=== PATIENT | male | born 1965 | race Hispanic/Latino ===

== ENCOUNTER 2019-01-21 13:58 | Observation (INO) | payer SELFPAY ==
[~2019-01-21] VITALS: Ht 172.7 cm; Wt 74.4 kg
[2019-01-21] MEDS ORDERED: SODIUM CHLORIDE 0.9% 1000ML 1,000 ML IV STA (14:19)
[2019-01-21] MEDS ORDERED: DEXTROSE 50% SYRINGE 50 ML IV PRN (14:30)
[2019-01-21] MEDS ORDERED: METOPROLOL TARTRATE 50 MG TAB PO NR (14:30)
[2019-01-21] MEDS ORDERED: SODIUM CHLORIDE FLUSH 10 ML SYR INJ PRN (14:30)
[2019-01-21] MEDS ORDERED: FAMOTIDINE 20 MG/2 ML VIAL IV NR (14:30)
[2019-01-21] MEDS ORDERED: NITROGLYCERIN 0.4 MG SUBL SL PRN (14:30)
[2019-01-21 14:36] LABS: BILIRUBIN,URINE NEGATIVE (NEGATIVE); CLARITY,URINE CLEAR (CLEAR); COLOR,URINE YELLOW (YELLOW); KETONES,URINE NEGATIVE (NEGATIVE); LEUKOCYTE ESTERASE ,URINE NEGATIVE (NEGATIVE); NITRITE,URINE NEGATIVE (NEGATIVE); PROTEIN,URINE DIPSTICK NEGATIVE (NEGATIVE); URINE UROBILINOGEN 0.2 mg/dL (0.2 - 1)
[2019-01-21 14:37] LABS: BASOPHILS % 0.3 % (0.0-1.0); EOSINOPHILS # (AUTO) 0.2 (0.0-0.4); EOSINOPHILS % 2.7 % (0.0-6.0); HEMATOCRIT 45.9 % (38.2-49.6); HEMOGLOBIN 15.6 g/dL (14.0-18.0); LYMPHOCYTES # (AUTO) 2.6 (1.0-3.2); LYMPHOCYTES % 29.7 % (18.0-39.1); MEAN CORPUSCULAR VOLUME 85.3 fL (81-99); MONOCYTES # (AUTO) 0.9 (0.2-0.8); MONOCYTES % 10.5 % (4.4-11.3); NEUTROPHILS # (AUTO) 4.9 (2.1-6.9); NEUTROPHILS % 56.5 % (38.7-80.0); PLATELET COUNT 223 x10e3/uL (140-360); RED BLOOD COUNT 5.38 x10e6/uL (4.3-5.7); RED CELL DISTRIBUTION WIDTH 13.3 % (11.7-14.4)
[2019-01-21 14:45] LABS: INR 0.96; PROTHROMBIN TIME 13.3 seconds (11.9-14.5)
[2019-01-21] MEDS ORDERED: ENOXAPARIN SODIUM INJ 100 MG/ML SYR SC ONE (14:45)
[2019-01-21] MEDS ORDERED: ASPIRIN 81 MG CHEW TAB PO ONE (14:45)
[2019-01-21 14:46] LABS: PARTIAL THROMBOPLASTIN TIME 25.7 seconds (23.8-35.5)
[2019-01-21 14:53] LABS: BACTERIA,URINE FEW /HPF; EPITHELIAL CELLS,URINE RARE /LPF; WBC,URINE (MAN) 0-5 /HPF (0-5)
[2019-01-21 14:56] LABS: ALANINE AMINOTRANSFERASE 38 IU/L (0-55); ALBUMIN 4.3 g/dL (3.5-5.0); ALBUMIN/GLOBULIN RATIO 1.5 (0.8-2.0); ALKALINE PHOSPHATASE 72 IU/L (40-150); ANION GAP 14.9 mmol/L (8-16); BLOOD UREA NITROGEN 15 mg/dL (7-26); BUN/CREATININE RATIO 18 (6-25); CALCIUM 9.3 mg/dL (8.4-10.2); CARBON DIOXIDE 25 mmol/L (22-29); CHLORIDE 105 mmol/L (98-107); CREATINE KINASE 74 IU/L (30-200); CREATININE, SERUM 0.85 mg/dL (0.72-1.25); EST GLOMERULAR FILTRATION RATE > 60 ML/MIN (60-); GLUCOSE 137 mg/dL (74-118); LIPASE 37 U/L (8-78); MAGNESIUM 2.4 MG/DL (1.3-2.1); POTASSIUM 3.9 mmol/L (3.5-5.1); SODIUM 141 mmol/L (136-145)
[2019-01-21 15:15] LABS: THYROID STIMULATING HORMONE 1.356 uIU/mL (0.350-4.940)
[2019-01-21] MEDS: METOPROLOL TARTRATE 25 MG TAB PO SCH ×2 (15:40→20:45)
[2019-01-21] MEDS: FAMOTIDINE 20 MG/2 ML VIAL IV SCH ×2 (15:47→20:45)
[2019-01-21] MEDS: ENOXAPARIN SODIUM INJ 100 MG/ML SYR SC SCH (15:50)
--- NOTE | 2019-01-21 16:00 | NUR ---
RECEIVED REPORT FROM ER, PT TRANSFERRED VIA WHEELCHAIR TO ROOM 211. PT IN STABLE CONDITION, NO S/S OF DISTRESS. PT HAS NO COMPLAINTS OF CHEST PAIN OR PRESSURE AT THIS TIME. LEFT AC 18G IN PLACE, SITE IS ASYMPTOMATIC AND PATENT. IS AT THE BEDSIDE.
--- NOTE | 2019-01-21 16:18 | Diagnostic Imaging Report ---
EXAMINATION: CHEST SINGLE (PORTABLE) INDICATION: ^ERMD ORDER ^[id number] ^1520 ^Y COMPARISON: None FINDINGS: AP view TUBES and LINES: None. LUNGS: Lungs are well inflated. Lungs are clear. There is no evidence of pneumonia or pulmonary edema. PLEURA: No pleural effusion or pneumothorax. HEART AND MEDIASTINUM: The cardiomediastinal silhouette is unremarkable.. BONES AND SOFT TISSUES: No acute osseous lesion. Soft tissues are unremarkable. UPPER ABDOMEN: No free air under the diaphragm. IMPRESSION: No acute thoracic abnormality. Signed by: Dr. Corinne Weldon M.D. on 01/21/2019 4:15 PM
[2019-01-21 16:23] VITALS: BP 152/85
[2019-01-21 16:28] VITALS: BP 152/85
[2019-01-21] MEDS: INSULIN REGULAR, HUMAN 100 UNIT/1 ML 3ML VIAL SQ SCH ×2 (16:30→21:14)
[2019-01-21 16:36] VITALS: BP 152/85
[2019-01-21 20:00] VITALS: BP 120/75
[2019-01-21] MEDS: SIMVASTATIN 20 MG TAB PO SCH (20:46)
[2019-01-21 20:49] VITALS: BP 120/75
--- NOTE | 2019-01-21 22:49 | NUR ---
PATIENT C/O CHEST DISCOMFORT BUT DENIES CHEST PAIN. BLOOD PRESSURE 102/67, HEART RATE 53. RHYTHM ON TELEMETRY IS SB. CALL LIGHT WITHIN EASY REACH, WILL CLOSELY MONITOR.
[2019-01-21 23:33] LABS: CREATINE KINASE 60 IU/L (30-200)
[2019-01-22] VITALS (7 sets, daily range): BP systolic 104–131; BP diastolic 58–83
--- NOTE | 2019-01-22 00:38 | NUR ---
PATIENT IS SOUNDLY ASLEEP, HE'S EASY TO AROUSE. HE DENIES CHEST PAIN AT THIS TIME, CALL LIGHT WITHIN EASY REACH, FAMILY MEMBERS WITH THE PATIENT.
--- NOTE | 2019-01-22 03:34 | NUR ---
WALKING ROUNDS MADE, PATIENT OBSERVED ASLEEP WITHOUT ACUTE DISTRESS. HE'S EASY TO AROUSE, HE DENIES CHEST PAIN. CALL LIGHT WITHIN EASY REACH, FAMILY MEMBERS IN THE ROOM WITH THE PATIENT.
[2019-01-22] MEDS: ENOXAPARIN SODIUM INJ 100 MG/ML SYR SC SCH ×2 (03:40→15:00)
[2019-01-22 06:51] LABS: BASOPHILS % 0.3 % (0.0-1.0); EOSINOPHILS # (AUTO) 0.2 (0.0-0.4); EOSINOPHILS % 3.2 % (0.0-6.0); HEMATOCRIT 43.4 % (38.2-49.6); HEMOGLOBIN 14.3 g/dL (14.0-18.0); LYMPHOCYTES # (AUTO) 2.3 (1.0-3.2); LYMPHOCYTES % 36.4 % (18.0-39.1); MEAN CORPUSCULAR HEMOGLOBIN 28.4 pg (28-32); MEAN CORPUSCULAR HGB CONC 32.9 g/dL (31-35); MEAN CORPUSCULAR VOLUME 86.3 fL (81-99); MONOCYTES # (AUTO) 0.7 (0.2-0.8); MONOCYTES % 11.9 % (4.4-11.3); NEUTROPHILS % 47.9 % (38.7-80.0); PLATELET COUNT 199 x10e3/uL (140-360); RED BLOOD COUNT 5.03 x10e6/uL (4.3-5.7); RED CELL DISTRIBUTION WIDTH 13.6 % (11.7-14.4)
[2019-01-22 07:18] LABS: ALANINE AMINOTRANSFERASE 68 IU/L (0-55); ALBUMIN 3.8 g/dL (3.5-5.0); ALBUMIN/GLOBULIN RATIO 1.5 (0.8-2.0); ALKALINE PHOSPHATASE 62 IU/L (40-150); BLOOD UREA NITROGEN 13 mg/dL (7-26); BUN/CREATININE RATIO 16 (6-25); CALCIUM 8.6 mg/dL (8.4-10.2); CARBON DIOXIDE 26 mmol/L (22-29); CHLORIDE 107 mmol/L (98-107); CHOL/HDL RATIO 3.9 (3.9-4.7); CHOLESTEROL 142 MD/DL (0-199); CREATININE, SERUM 0.81 mg/dL (0.72-1.25); EST GLOMERULAR FILTRATION RATE > 60 ML/MIN (60-); GLUCOSE 122 mg/dL (74-118); HDL CHOLESTEROL 36 MG/DL (40-60); LDL CHOLESTEROL 84 MG/DL (60-130); MAGNESIUM 2.3 MG/DL (1.3-2.1); PHOSPHORUS 3.3 MG/DL (2.3-4.7); SODIUM 139 mmol/L (136-145); TRIGLYCERIDES 111 MG/DL (0-149)
[2019-01-22] MEDS: INSULIN REGULAR, HUMAN 100 UNIT/1 ML 3ML VIAL SQ SCH ×4 (07:30→20:19)
--- NOTE | 2019-01-22 07:30 | NUR ---
RCD PT AT BED PT IS ALERT AND ORIENTED PT RESTING ON BED NO SIGNS OF ANY DISTRESS NOTED IV PATENT BY SALINE FLUSH BED LOW AND LOCKED CALL LIGHT IN REACH
[2019-01-22 08:02] LABS: CREATINE KINASE MB 0.6 ng/mL (0-5.0)
[2019-01-22] MEDS: FAMOTIDINE 20 MG/2 ML VIAL IV SCH ×2 (08:59→20:43)
[2019-01-22] MEDS: ASPIRIN 325 MG TAB EC PO SCH (08:59)
[2019-01-22] MEDS: METOPROLOL TARTRATE 25 MG TAB PO SCH ×2 (08:59→20:44)
[2019-01-22] MEDS: LISINOPRIL 10 MG TAB PO SCH (09:00)
[2019-01-22] MEDS: MORPHINE SULFATE 2 MG/ML SYR 1ML IV PRN (16:38)
[2019-01-22] MEDS: ONDANSETRON HCL INJ 2MG/ML 2ML 2 MG/ML VIAL IV PRN (16:38)
--- NOTE | 2019-01-22 18:38 | NUR ---
PT RESTING ON BED BED SIDE REPORT GIVEN TO ONCOMING NURSE
--- NOTE | 2019-01-22 19:00 | NUR ---
received report from day nurse. patient is resting in bed, and complaining of abdominal pain. Will notify MD for further instructions.
--- NOTE | 2019-01-22 19:45 | NUR ---
patient is complaining of abdominal pain that has not been relieved by morphine. MD notified. received new order for malox, one time dose of 30mg Toradol, and one time dose of 10mg dulcolax suppository. Will continue to monitor patients pain.
[2019-01-22] MEDS ORDERED: KETOROLAC TROMETHAMINE 30 MG/ML VIAL IV STA (20:07)
[2019-01-22] MEDS ORDERED: BISACODYL 10 MG SUPP PR ONE (20:15)
[2019-01-22] MEDS ORDERED: MAGNESIUM/ALUMINUM/SIMETHICONE 30 ML UDC PO PRN (20:15)
--- NOTE | 2019-01-22 20:30 | NUR ---
patients abdominal pain has been reassessed. Patient states since receiving the medications he has had a bowel movement and the abdominal pain has stopped. will continue to monitor patients for abdominal pain.
[2019-01-22] MEDS: SIMVASTATIN 20 MG TAB PO SCH (20:44)
--- NOTE | 2019-01-22 21:55 | NUR ---
Cardiology Consult Dictation# [id number]
[2019-01-23] VITALS (8 sets, daily range): BP systolic 95–148; BP diastolic 59–81
--- NOTE | 2019-01-23 02:29 | Consultation ---
DATE OF CONSULTATION: 01/22/2019 Cardiology Consultation REQUESTING PHYSICIAN: Gamaliel Christensen MD. REASON FOR CONSULTATION: Chest pain. HISTORY OF PRESENT ILLNESS: This is a 53-year-old male with diabetes mellitus and hyperlipidemia, who presents with complaints of chest pain. He describes chest tightness and pressure for the last 2-3 weeks with worsening yesterday to 6-7/10 in severity. This is not associated with shortness of breath, nausea, diaphoresis, but does radiate to the neck. The pain comes and goes lasting minutes at a time. Due to worsening of the symptoms, he presented to the ER for further evaluation. He denied any edema, orthopnea or PND. REVIEW OF SYSTEMS: Negative except as per HPI. PAST MEDICAL HISTORY: Diabetes mellitus and hyperlipidemia. PAST SURGICAL HISTORY: Remote history of hand surgery. ALLERGIES: PLEASE SEE EMR. MEDICATIONS: Please see medication list. SOCIAL HISTORY: He smokes 5 cigarettes a day for the last 10 years. No alcohol or illicit drugs. FAMILY HISTORY: None. PHYSICAL EXAMINATION: VITAL SIGNS: Temperature 96.2 degrees, pulse 57, respiratory rate 20, blood pressure 123/83, and oxygen saturation 98% on room air. GENERAL: Well-developed, well-nourished man in no acute distress. Awake and alert. HEENT: Normocephalic, atraumatic. Pupils equal. No scleral icterus. NECK: Supple. No thyromegaly or cervical lymphadenopathy. No carotid bruits. LUNGS: Clear to auscultation bilaterally. No wheezes or crackles. CARDIOVASCULAR: Normal rate and regular rhythm. No murmur. Normal S1, S2. ABDOMEN: Soft, nontender. EXTREMITIES: No edema. NEUROLOGIC: Nonfocal exam. LABORATORY DATA: WBC 6.2, hemoglobin 14.3, hematocrit 43.4, and platelets 199. Sodium 139, potassium 4, chloride 107, CO2 of 26, BUN 13 and creatinine 0.81. Troponin less than 0.001. Chest x-ray, no acute thoracic abnormality. ECG, normal sinus rhythm, normal ECG. IMPRESSION: 1. Chest pain. 2. Diabetes mellitus. 3. Hyperlipidemia. RECOMMENDATIONS: The patient is to rule out for myocardial infarction with serial cardiac biomarkers. Given the patient's risk factors, ischemic evaluation is warranted with nuclear stress test. Continue current cardiac medications. LDL is at goal. Monitor patient on telemetry while admitted. Thank you for this consult. We will continue to follow. MD MICHAEL Owens/ARON /[id number]
[2019-01-23] MEDS: ENOXAPARIN SODIUM INJ 100 MG/ML SYR SC SCH (03:39)
[2019-01-23] MEDS: MORPHINE SULFATE 2 MG/ML SYR 1ML IV PRN ×2 (03:45→08:16)
[2019-01-23] MEDS ORDERED: PANTOPRAZOLE SOD 40 MG TABEC PO ONE (05:00)
--- NOTE | 2019-01-23 06:43 | NUR ---
report given to day nurse. patient is resting comfortably in bed. bed is in lowest position and call sorensen is within reach.
[2019-01-23] MEDS: INSULIN REGULAR, HUMAN 100 UNIT/1 ML 3ML VIAL SQ SCH ×4 (07:30→21:00)
[2019-01-23] MEDS: FAMOTIDINE 20 MG/2 ML VIAL IV SCH ×2 (08:16→21:03)
[2019-01-23] MEDS: ONDANSETRON HCL INJ 2MG/ML 2ML 2 MG/ML VIAL IV PRN (08:16)
[2019-01-23] MEDS: METOPROLOL TARTRATE 25 MG TAB PO SCH ×2 (09:00→21:03)
[2019-01-23] MEDS ORDERED: REGADENOSON 0.4 MG/5 ML SYR IV ONE (13:07)
[2019-01-23] MEDS ORDERED: ENOXAPARIN INJ 80 MG/0.8 ML SYR SC SCH (15:00)
--- NOTE | 2019-01-23 15:33 | NUR ---
GAVE PACKET OF INFORMATION WITH [facility] [employer] FOR ASSISTANCE WITH LOW TO NO INCOME TO PATIENT. RESOURCES THAT PATIENT MAY BE ABLE TO FOLLOW UP UPON DISCHARGE. PT EDUCATED ON EACH RESOURCE AND UNDERSTANDING HOW TO FOLLOW UP TO SEE IF QUALIFIED FOR EACH RESOURCE.
[2019-01-23] MEDS: ASPIRIN 325 MG TAB EC PO SCH (15:42)
[2019-01-23] MEDS: LISINOPRIL 10 MG TAB PO SCH (15:43)
--- NOTE | 2019-01-23 16:32 | NUR ---
Patient states "I still have abdominal pain since yesterday" Offered PRN morphine. Patient states "Morphine is not really helping this pain" Notified . See orders.
--- NOTE | 2019-01-23 17:10 | NUR ---
2 DAY OBS AWAIT STRESS TEST FOR DISCHARGE DR PATTERSON CONSULTED GI FOR ABD PAIN REFERRED TO DR MCCAIN
--- NOTE | 2019-01-23 19:05 | NUR ---
Report given to oncoming nurse of patient's status. Nurse to notify if patient is cleared to discharge by .
[2019-01-23 19:26] LABS: AMYLASE 23 U/L (25-125); LIPASE 24 U/L (8-78)
--- NOTE | 2019-01-23 19:34 | Myoview Stress Test ---
DATE OF STUDY: 01/22/2019 21:54:00 Stress Test - Treadmill ONLY PROCEDURE TITLE: Rest/stress single isotope SPECT imaging with pharmacologic stress and gated SPECT imaging. INDICATION: Chest pain. PROCEDURE IN DETAIL: The patient performed treadmill exercise using a Parker protocol, exercising for 10 minutes 27 seconds to stage IV and completing estimated workload of 12.8 metabolic equivalents (METs). The heart rate was 77 beats per minute at rest and increased to 128 beats per minute at peak exercise, which was 76% of the maximum predicted heart rate. The rest blood pressure was 128/78 mmHg, increased to 163/89 mmHg, which is a normal response. The patient did not develop any symptoms other than fatigue during the procedure. Test was terminated due to fatigue. The resting electrocardiogram demonstrated normal sinus rhythm. There were no ST-segment changes suggestive of myocardial ischemia. Due to inability to achieve target heart rate, the patient was converted to pharmacologic stress. Pharmacologic stress testing was performed with regadenoson per protocol. The heart rate was 91 beats per minute at rest increased to 106 beats per minute during the regadenoson infusion, which is a normal response. The resting blood pressure was 147/73 mmHg and decreased to 109/64 mmHg, which is a normal response. The resting electrocardiogram demonstrated normal sinus rhythm. There were no ST-segment changes suggestive of myocardial ischemia. Myocardial perfusion imaging was performed at rest following the injection of 11 millicuries of tetrofosmin. At peak pharmacologic effect, the patient injected 38.8 millicurie of tetrofosmin. Gated post-stress tomographic imaging was performed. FINDINGS: The overall quality of study is fair. Left ventricular cavity is noted to be normal size on the rest and stress studies. SPECT images demonstrate homogeneous tracer distribution throughout the myocardium. Gated SPECT imaging reveals normal myocardial thickening and wall motion. The left ventricular ejection fraction was calculated to be greater than 70%. IMPRESSION: Myocardial perfusion imaging is normal. Overall, left ventricular systolic function was normal without regional wall motion abnormalities. Frances Swann MD ABS/MODL /[id number]
[2019-01-23] MEDS: SIMVASTATIN 20 MG TAB PO SCH (21:03)
--- NOTE | 2019-01-24 01:35 | Progress Note ---
DATE: 01/23/2019 Cardiology Progress Note SUBJECTIVE: The patient denies chest pain or shortness of breath. Nuclear stress test was performed today. OBJECTIVE: VITAL SIGNS: Temperature 98.4 degrees, pulse 75, respiratory rate 18, blood pressure 127/81, oxygen saturation 96% on room air. GENERAL: Awake and alert, in no distress. LUNGS: Clear to auscultation bilaterally. No wheezes or crackles. CARDIOVASCULAR: Normal rate. Regular rhythm. No murmur. Normal S1, S2. ABDOMEN: Soft, nontender. EXTREMITIES: No edema. CARDIAC MEDICATIONS: Simvastatin 20 mg p.o. at bedtime, metoprolol tartrate 25 mg p.o. q.12 hours, enoxaparin 70 mg subcu q.12 hours, lisinopril 10 mg p.o. daily, and aspirin 325 mg p.o. q.a.m. LABORATORY DATA: None pertinent today. TELEMETRY: Normal sinus rhythm. IMPRESSION: 1. Chest pain. 2. Diabetes mellitus. 3. Hyperlipidemia. RECOMMENDATIONS: The patient is ruled out for myocardial infarction with serial cardiac biomarkers. Nuclear stress test was without evidence of ischemia. Continue current cardiac medications. Decrease Lovenox to DVT prophylaxis dose only. Continue simvastatin, his LDL is at goal. Monitor the patient on telemetry while admitted. Blood pressure is adequately controlled. Thank you for this consult. We will continue to follow. Frances Swann MD ABS/MODL /[id number]
--- NOTE | 2019-01-24 04:51 | Consultation ---
DATE OF CONSULTATION: 01/23/2019 GI Consult Note REASON FOR CONSULT: Nonspecific lower abdominal pain for 2 days. HISTORY OF PRESENTING ILLNESS: A 53 years old male, who got admitted with recurrent left-sided chest pain. The patient has been seen and evaluated by Cardiology Service. Cardiac markers are negative. The patient is likely going to be discharged home. Over the last couple of days, he has also been complaining about lower abdominal pain, which is intermittently persistent, not associated with any diarrhea or constipation. Lower abdominal pain usually comes into spasm. Denies any associated nausea or vomiting. No blood or mucus in the stool. He is 53 years old, has never had any colonoscopy. Weight is stable. REVIEW OF SYSTEMS: 12-point system reviewed, symptomatology is limited as per HPI. PAST MEDICAL HISTORY: Type 2 diabetes and hyperlipidemia. PAST SURGICAL HISTORY: Some kind of hand surgery in the past. FAMILY HISTORY: Noncontributory, negative for any GI or MECHANIC malignancies. SOCIAL HISTORY: Chronic smoker. He smokes about 5 to 7 cigarettes a day, he has been smoking for more than 10 years. No alcohol or any illicit drug use. MEDICATIONS: Home medications: None. Inpatient medications: 1. Aspirin. 2. Famotidine 20 mg IV q.12 hours. 3. Regular insulin. 4. Lisinopril. 5. Magnesium. 6. Maalox. 7. Metoprolol. 8. Morphine, as needed. 9. Nitroglycerin, as needed. 10. Zofran, as needed. 11. Simvastatin, 20 mg at bedtime. ALLERGIES: NO KNOWN DRUG ALLERGIES. PHYSICAL EXAMINATION: VITAL SIGNS: Temperature 99.9, pulse 87, respirations 17, blood pressure 148/81, oxygen saturation 96% on room air. GENERAL: Not in any acute distress. Oral mucosa is moist. Anicteric sclerae. CVS: S1, S2. Regular. LUNGS: Bilaterally grossly clear. ABDOMEN: Soft, nondistended, mild lower quadrant tenderness on deep palpation without rebound, rigidity, or guarding. Positive bowel sounds. EXTREMITIES: Warm. No leg edema. LABORATORY DATA: Sodium 139, potassium 4.0, chloride 107, bicarb 26. BUN 13, creatinine 0.81, glucose 122. Liver enzymes normal. Lipase normal. Amylase normal. WBC 6.23, hemoglobin 14.3, hematocrit 43.4, MCV 86.3, platelet count 199. Chest x-ray, no acute cardiothoracic process. IMPRESSION: 1. Noncardiac chest pain, likely could be due to underlying reflux disease. However, ischemia workup is warranted, which electively can be done as an outpatient. 2. Lower abdominal cramping, this is due to irritable bowel syndrome. I do not suspect any significant intraabdominal pathology. PLAN: Supportive care, PPI, avoid NSAIDs. The patient can be discharged home from GI standpoint. I have given him my business card. I have advised the patient to call my office and schedule appointment to see me within 2 weeks. Kuldip Argueta MD SA/ARON /[id number]
[2019-01-24] MEDS ORDERED: ENOXAPARIN SOD INJ 40 MG/0.4 ML SYR SC SCH (17:00)
--- NOTE | 2019-01-25 05:41 | Discharge Summary ---
DISCHARGE DIAGNOSES: 1. Chest pain rule out myocardial infarction. 2. Abdominal pain. HISTORY OF PRESENT ILLNESS AND HOSPITAL COURSE: See hospital chart for full details. The patient is a gentleman, who presented with chest pain. He ruled out for OK by serial enzymes and EKG. He was seen by Cardiology, who did a stress test on the patient that was negative and therefore he was cleared by Cardiology, but he was also having some complaints of abdominal pain. He was treated with proton pump inhibitors. He states pain goes throughout the day and did not affect his ability to it, but I did go ahead and consult GI to see the patient. After GI saw him, they felt the patient could go home with outpatient followup, which the patient was amenable to. So, he was discharged home. He will follow up with his primary care physician in one to two weeks as well as Cardiology in one to two weeks and GI in one to two weeks. Please see hospital chart for full details. MD SHANTELLE Swanson/ARON /[id number]
== END 2019-01-23 23:28 | disposition home or self-care (01) ==
LOC: ER 13:58 → ERHOLD 14:25 → MED/SURG2 16:12
PROVIDERS: ADMIT Internal Medicine; ATTEND Internal Medicine
DX: R07.89 Other chest pain (principal); I10 Essential (primary) hypertension; E11.9 Type 2 diabetes mellitus without complications; E78.5 Hyperlipidemia, unspecified; Z82.49 Family history of ischemic heart disease and other diseases of the circulatory system; Z79.82 Long term (current) use of aspirin; Z79.4 Long term (current) use of insulin; R10.30 Lower abdominal pain, unspecified; F17.210 Nicotine dependence, cigarettes, uncomplicated
CPT/HCPCS: 36415 ×3; 71045; 78452; 80053 ×2; 80061; 81001; 82150; 82550 ×2; 82553 ×2; 82948 ×3; 83690 ×2; 83735 ×2; 83880; 84100; 84443; 84484 ×2; 85025 ×2; 85610; 85730; 93005; 93017; 93306; 96372; 99285; A9502; G0378 ×3; J1650 ×4; J1817; J1885; J2270 ×2; J2405 ×2; J2785; J7030; S0164

== ENCOUNTER 2022-03-02 10:58 | Emergency (ER) | payer OTHER ==
[~2022-03-02] VITALS: Ht 172.7 cm; Wt 74.4 kg
[2022-03-02] MEDS ORDERED: BUPIVACAINE HCL 0.25% 10ML MPF VIAL INJ ONE (11:15)
[2022-03-02] MEDS ORDERED: CEPHALEXIN500 MG PO (11:18)
== END 2022-03-02 12:25 | disposition home or self-care (01) ==
LOC: ER 11:05
DX: S61.210A Laceration without foreign body of right index finger without damage to nail, initial encounter (principal); X58.XXXA Exposure to other specified factors, initial encounter
CPT/HCPCS: 99283

== ENCOUNTER 2022-03-11 18:09 | Emergency (ER) | payer OTHER ==
[~2022-03-11] VITALS: Ht 172.7 cm; Wt 74.4 kg
[~2022-03-11 18:09] MED LIST: CEPHALEXIN500 MG PO
== END 2022-03-11 18:52 | disposition home or self-care (01) ==
LOC: FSED 18:14
DX: Z48.02 Encounter for removal of sutures (principal); E11.9 Type 2 diabetes mellitus without complications
CPT/HCPCS: 99282